=== PATIENT | female | born 1955 | race Caucasian/White ===

== ENCOUNTER → 2017-04-26 | Outpatient (CLI) | payer OTHER ==
[~2017-04-26] MED LIST: ASPIRIN PO; BIOFREEZE WITH120 GM TOP; HYDROCODON-ACE1 EAC5 PO; IBUPROFEN800 MG PO; KLONOPIN1 MG PO; LISINOPRIL-HCTZ1 T19 PO; LOPRESSOR PO; LORTAB 5/500 TA1 TA1 PO; MEDROL PO; MS CONTIN PO; NORCO 10/325 TA1 TAB PO; PANTOPRAZOLE SO40 MG PO; REGLAN5 MG PO; TIZANIDINE HCL4 M1 PO; TOPROL XL PO; UNKNOWN BP MED; ZOFRAN PO; [UNRECOGNIZED DRUG - OTHER] TOP
--- NOTE | ~2017-04-26 | CT7 ---
[facility] A Service of [facility] RADIOLOGY TEXT RESULTS PATIENT: YOANA NAPIER LOCATION: [facility] : 57 UNIT #: [id number] AGE: [address]: Fang Guajardo APRN SEX: F ORDER DR: [id number] [facility] [address] [place], [place] [address] [id number] O MR#: [id number] [facility] #: [id number] NAME: YOANA NAPIER : 1955 SEX: F STUDY DATE/TIME: 04/26/2017 15:53 UNIT: [facility] ROOM: STUDY DESCRIPTION: CT Abdomen Wo Cont Attending Physician: Fang Guajardo A.P.R.N. Referring Physician: Fang Guajardo A.P.R.N. Ordering Physician: Fang Guajardo A.P.R.N. Primary Care Physician: Fang Guajardo A.P.R.N. MEDICAL IMAGING REPORT This report is preliminary unless electronic signature is present EXAM CT of the abdomen without contrast. INDICATIONS Right flank pain for a few months. TECHNIQUE CT of the abdomen was performed without contrast. Coronal and sagittal reformatted images were obtained. This CT exam was performed with one or more of the following radiation dose reduction techniques: automatic exposure control, adjustment of mA and/or kV according to patient size, and iterative reconstruction. COMPARISON Comparison is made with 04/26/2014. FINDINGS The lung bases are clear. The liver, gallbladder and spleen are unremarkable. The kidneys are unremarkable. The adrenal glands are unremarkable. Pancreas is unremarkable. Visualized bowel contents are unremarkable. Normal appendix. Bone windows demonstrate degenerative changes of the lumbar spine. IMPRESSION No CT findings to explain the patient's symptoms. Dictated by... Srikanth Sales M.D. THIS IS AN ELECTRONICALLY VERIFIED REPORT Srikanth Sales M.D. at 04/28/2017 4:59 PM ARS/jt [facility] A Service of [facility] RADIOLOGY TEXT RESULTS PATIENT: YOANA NAPIER LOCATION: [facility] #: [id number] : 57 UNIT #: [id number] AGE: [address]: Fang Guajardo APRN SEX: F ORDER DR: TD: 04/27/2017 18:21 JOB #: [id number] MEDICAL IMAGING REPORT Page 1 of 1 COPY
== END | disposition home or self-care (01) ==
LOC: CCAT 15:22
DX: R10.9 Unspecified abdominal pain (principal)
CPT/HCPCS: 74150